=== PATIENT | male | born 1970 | race Caucasian/White ===

== ENCOUNTER 2024-06-09 16:53 | Observation (INO) | payer BC ==
[2024-06-09 17:29] LABS: Protime INR 1.14
[2024-06-09 17:36] LABS: Absolute Eosinophils 0.1 K/uL (0-0.5); Absolute Lymphocytes (CBC) 1.8 K/uL (0.7-4.9); Absolute Monocytes 0.5 K/uL (0.1-1.3); Absolute Neutrophil 8.2 K/uL (1.8-8.0); Basophils % 0.4 % (0-1.3); Eosinophils % 1.1 % (0-4.4); Hematocrit 46.2 % (39.6-49.0); MCH 32.4 pg (27.0-35.0); MCHC 34.8 g/dL (32.0-36.0); MCV 93.2 fL (80-100); MPV 12.5 fL (7.6-11.3); Neutrophils % 76.5 % (41.7-73.7); Nucleated Red Blood Cells % 0.1 % (0-0); Platelets 102 thou/uL (152-406); RBC Red Blood Cell Count 4.95 M/uL (4.33-5.43); Red Cell Distribution Width 12.9 % (12.1-15.2)
--- NOTE | 2024-06-09 17:42 | RAD REPORT ---
EXAMINATION: ONE VIEW CHEST XR CLINICAL INDICATION: CHEST PAIN TECHNIQUE: Frontal chest projection is submitted. Examination is limited by patient positioning and t echnique. COMPARISON: No prior exam. FINDINGS: The lungs are well inflated and clear. The heart is upper limit of normal in size. No displaced fract ures identified. IMPRESSION: No acute intrathoracic abnormalities.
[2024-06-09 17:43] LABS: ALT/SGPT 43 U/L (16-61); AST/SGOT 24 U/L (15-37); Albumin 3.6 g/dL (3.4-5.0); Albumin/Globulin Ratio 1.2 (1.1-1.8); Alkaline Phosphatase 79 U/L (45-117); Anion Gap 9.7 mEq/L (5.0-15.0); BUN Blood Urea Nitrogen 12 mg/dL (7-18); Bicarbonate 24 mEq/L (21-32); Bilirubin Total 0.4 mg/dL (0.2-1.0); Glomerular Filtration Rate 89 ml/min (=/>90); Glucose Level 110 mg/dL (74-106); NT PRO-BNP 79 pg/mL (<125); Potassium 3.7 mEq/L (3.5-5.1); Protein, Total 6.6 g/dL (6.4-8.2); Sodium Level 138 mEq/L (136-145); Troponin High Sensitivity 3.7 pg/mL (<58.9)
[2024-06-09 17:59] LABS: Bilirubin Direct < 0.2 mg/dL (0-0.2); Bilirubin Indirect, Calculated 0.2 mg/dL (0.2-0.8)
[2024-06-09] MEDS ORDERED: MORPHINE 4 MG/ML SYR ONE (18:16)
[2024-06-09] MEDS ORDERED: ONDANSETRON 4 MG/2 ML VIAL ONE (18:16)
--- NOTE | 2024-06-09 18:51 | EDPHYS ---
Physician Documentation [facility] Name: Steven Servin Age: 54 yrs Sex: Male : 1970 Arrival Date: 06/09/2024 Time: 16:53 Bed 19 Private MD: ED Physician David Mistry HPI: 06/09 18:49 This 54 yrs old Male presents to ER via EMS with complaints of Chest Pain. 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 States it feels similar to previous MA. Reports associated nausea, shortness of breath, and near syncope. . Historical: - Allergies: 17:06 PENICILLINS; kc6 - PMHx: 17:06 Hypertensive disorder; Myocardial infarction; Diabetes mellitus; kc6 - PSHx: 17:06 None; kc6 - Immunization history:: Adult Immunizations up to date. - Infectious Disease History:: Denies. - Social history:: Smoking status: Patient reports the use of cigarette tobacco products, denies chronic smoking, but will smoke occasionally, cigars. ROS: 18:49 Constitutional: As per HPI kb Exam: 17:33 Constitutional: This is a well developed, well nourished patient who is awake, alert, kb and in no acute distress. Head/Face: Normocephalic, atraumatic. ENT: Moist Mucous membranes Chest/axilla: Normal chest wall appearance and motion. Cardiovascular: Regular rate Respiratory: Respirations even and unlabored. No increased work of breathing. Talking in full sentences Abdomen/GI: Soft, non-tender. No distention Skin: Warm, dry with normal turgor. Normal color. MS/ Extremity: Pulses equal, no cyanosis. Neurovascular intact. Full, normal range of motion. Neuro: Awake and alert, GCS 15, oriented to person, place, time, and situation. 17:33 ECG was reviewed by the Attending Physician. Vital Signs: 17:04 BP 124 / 93; Pulse 78; Resp 18 S; Temp 98.7(TE); Pulse Ox 100% on R/A; Weight 116.57 kg kc6 (M); Height 6 ft. 0 in. (R); 19:00 BP 138 / 73; Pulse 78; Resp 18; Pulse Ox 95% ; cp4 20:30 BP 136 / 79; Pulse 81; Resp 18; Pulse Ox 98% ; cp4 17:04 Body Mass Index 34.86 (116.57 kg, 182.88 cm) kc6 MDM: 17:02 Medical Screening Exam initiated kb 18:47 Differential diagnosis: acute mi, arrhythmia. Data reviewed: vital signs, nurses notes. kb Consideration of Admission/Observation Patient was admitted/placed on observation. Escalation of care including admission/observation considered. Management of patient was discussed with the following: Hospitalist: Dr Mccray accepts pt for admission. Historians other than the Patient: EMS: [facility]. Care significantly affected by the following chronic conditions: Hypertension, high cholesterol, MA x2. Counseling: I had a detailed discussion with the patient and/or guardian regarding the historical points, exam findings, and any diagnostic results supporting the discharge/admit diagnosis, lab results, radiology results, the need for further work-up and treatment in the hospital. 18:50 ED course: HEART score 4. kb 06/09 17:02 Order name: Basic Metabolic Panel; Complete Time: 18:01 kb 06/09 17:02 Order name: CBC with Diff; Complete Time: 17:52 kb 06/09 17:02 Order name: LFT's; Complete Time: 18:01 kb 06/09 17:02 Order name: Magnesium; Complete Time: 18:01 kb 06/09 17:02 Order name: NT PRO-BNP; Complete Time: 18:01 kb 06/09 17:02 Order name: PT-INR; Complete Time: 17:32 kb 06/09 17:02 Order name: Troponin HS; Complete Time: 18:01 kb 06/09 19:04 Order name: Urinalysis w/ reflexes EDMS 06/09 19:04 Order name: CBC with Automated Diff EDMS 06/09 19:04 Order name: CBC with Automated Diff EDMS 06/09 19:04 Order name: Comprehensive Metabolic Panel EDMS 06/09 19:04 Order name: Comprehensive Metabolic Panel EDMS 06/09 19:04 Order name: Troponin High Sensitivity EDMS 06/09 19:04 Order name: Troponin High Sensitivity; Complete Time: 20:05 EDMS 06/09 19:05 Order name: Troponin High Sensitivity EDMS 06/09 19:05 Order name: Troponin High Sensitivity EDMS 06/09 17:02 Order name: XRAY Chest (1 view); Complete Time: 17:52 kb 06/09 17:02 Order name: EKG; Complete Time: 17:03 kb 06/09 17:02 Order name: Cardiac monitoring; Complete Time: 17:10 kb 06/09 17:02 Order name: EKG - Nurse/Tech; Complete Time: 17:10 kb 06/09 17:02 Order name: IV Saline Lock; Complete Time: 17:10 kb 06/09 17:02 Order name: Labs collected and sent; Complete Time: 17:11 kb 06/09 17:02 Order name: O2 Per Protocol; Complete Time: 17:11 kb 06/09 17:02 Order name: O2 Sat Monitoring; Complete Time: 17:11 kb EC:33 Rate is 72 beats/min. Rhythm is regular. QRS Otto is Normal. FL interval is normal at kb 182 msec. QRS interval is normal at 96 msec. QT interval is normal at 435 msec. Administered Medications: 18:27 Drug: morphine IVP or IV 4 mg IVP once over 4 mins Route: IVP; Infused Over: 4 mins; kc6 Site: right antecubital; 19:02 Follow up: Response: No adverse reaction; Pain is decreased; RASS: Alert and Calm (0) [facility] 18:27 Drug: Ondansetron IVP 4 mg IVP once; over 2 minutes Route: IVP; Site: right antecubital;kc6 19:02 Follow up: Response: No adverse reaction [facility] Disposition Summary: 06/09/24 18:50 Hospitalization Ordered Notes: Hospitalization Status: Observation kb Provider: Martir Mccray Location: Telemetry/MedSurg (observation) kb Condition: Stable kb Problem: new kb Symptoms: are unchanged kb Bed/Room Type: Standard Room Assignment: 205(06/09/24 19:25) kmf Diagnosis - Chest pain, unspecified kb Forms: - Medication Reconciliation Form kb - SBAR form kb - Leadership Thank You Letter kb Signatures: Dispatcher [employer] Eloina West FNP-C FNP-Shantel Teran RN RN kc6 Sandra Hunter km Corrections: (The following items were deleted from the chart) 19:25 18:50 kb kmf
--- NOTE | 2024-06-09 18:51 | ER ---
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 Coronavirus screen: At this time, the client does not indicate any symptoms associated with coronavirus-19. Ebola Screen: No symptoms or risks identified at this time. Initial Sepsis Screen: Does the patient meet any 2 criteria? No. Patient's initial sepsis screen is negative. Does the patient have a suspected source of infection? No. Patient's initial sepsis screen is negative. Risk Assessment: Do you want to hurt yourself or someone else? Patient reports no desire to harm self or others. Onset of symptoms was June 09, 2024. Care prior to arrival: Medication(s) given: ASA, 81 mg, x 4, IV initiated. 18 GA, in the right antecubital area, Glucose check: 99. 17:04 Method Of Arrival: EMS: [facility] kc6 17:04 Acuity: BRYANT 2 kc6 Historical: - Allergies: 17:06 PENICILLINS; kc6 - PMHx: 17:06 Hypertensive disorder; Myocardial infarction; Diabetes mellitus; kc6 - PSHx: 17:06 None; kc6 - Immunization history:: Adult Immunizations up to date. - Infectious Disease History:: Denies. - Social history:: Smoking status: Patient reports the use of cigarette tobacco products, denies chronic smoking, but will smoke occasionally, cigars. Screenin:07 [facility] ED Fall Risk Assessment (Adult) History of falling in the last 3 months, kc6 including since admission No falls in past 3 months (0 pts) Confusion or Disorientation No (0 pts) Intoxicated or Sedated No (0 pts) Impaired Gait No (0 pts) Mobility Assist Device Used No (0 pt) Altered Elimination No (0 pt) Score/Fall Risk Level 0 - 2 = Low Risk Oriented to surroundings, Maintained a safe environment, Educated pt \T\ family on fall prevention, incl call for assistance when getting out of bed. Abuse screen: Denies threats or abuse. Denies injuries from another. Nutritional screening: No deficits noted. Tuberculosis screening: No symptoms or risk factors identified. Assessment: 16:55 General: Appears in no apparent distress. uncomfortable, well groomed, well developed, kc6 Behavior is cooperative, appropriate for age, anxious. Pain: Complains of pain in chest Pain radiates to left arm Pain currently is 9 out of 10 on a pain scale. at worst was 10 out of 10 on a pain scale. Quality of pain is described as radiating, sharp, Pain began suddenly, 1 hour ago. Is continuous, Noted to be grimacing, resistant to movement. Neuro: Level of Consciousness is awake, alert, obeys commands, Oriented to person, place, time, situation, Appropriate for age Reports dizziness. Cardiovascular: Reports chest pain, Heart tones S1 S2 present Capillary refill < 3 seconds Rhythm is sinus rhythm. Respiratory: Airway is patent Trachea midline Respiratory effort is even, unlabored, Respiratory pattern is regular, symmetrical. GI: Reports nausea. : No signs and/or symptoms were reported regarding the genitourinary system. Urine is clear. EENT: No signs and/or symptoms were reported regarding the EENT system. Derm: No signs and/or symptoms reported regarding the dermatologic system. Skin is intact, is healthy with good turgor, Skin is pink, warm \T\ dry. Musculoskeletal: No signs and/or symptoms reported regarding the musculoskeletal system. Circulation, motion, and sensation intact. Range of motion: intact in all extremities. 17:55 Reassessment: Patient appears in no apparent distress at this time. No changes from kc6 previously documented assessment. Patient and/or family updated on plan of care and expected duration. Pain level reassessed. Patient is alert, oriented x 3, equal unlabored respirations, skin warm/dry/pink. Vital Signs: 17:04 BP 124 / 93; Pulse 78; Resp 18 S; Temp 98.7(TE); Pulse Ox 100% on R/A; Weight 116.57 kg kc6 (M); Height 6 ft. 0 in. (R); 19:00 BP 138 / 73; Pulse 78; Resp 18; Pulse Ox 95% ; cp4 20:30 BP 136 / 79; Pulse 81; Resp 18; Pulse Ox 98% ; cp4 17:04 Body Mass Index 34.86 (116.57 kg, 182.88 cm) [facility] ED Course: 17:02 Patient arrived in ED. kb 17:02 Eloina Sevilla FNP-C is [facility]. kb 17:02 David Mistry MD is Attending Physician. kb 17:04 Shantel Acuña RN is Primary Nurse. kc6 17:06 Triage completed. kc6 17:06 Arm band placed on. EKG completed in triage. Results shown to MD. kc6 17:07 Patient has correct armband on for positive identification. Bed in low position. Call kc6 light in reach. Side rails up X2. playground monitor on. Pulse ox on. NIBP on. Door closed. Noise minimized. Lights dimmed. Warm blanket given. Pillow given. 17:07 EKG done, by ED staff, reviewed by Eloina CROWLEY. Maintain EMS IV. Dressing kc6 intact. Good blood return noted. Site clean \T\ dry. Gauge \T\ site: 18GRAC. Flushed with 10 mL NS. Patient maintains SpO2 saturation greater than 95% on room air. 17:31 XRAY Chest (1 view) In Process Unspecified. EDMS 18:50 Martir Mccray MD is Hospitalizing Provider. kb 19:02 Report given to Katherine Osborne RN. [facility] 20:30 Provided Education on: admission. cp4 20:30 No provider procedures requiring assistance completed. Patient admitted, IV remains in cp4 place. Administered Medications: 18:27 Drug: morphine IVP or IV 4 mg IVP once over 4 mins Route: IVP; Infused Over: 4 mins; [facility] Site: right antecubital; 19:02 Follow up: Response: No adverse reaction; Pain is decreased; RASS: Alert and Calm (0) [facility] 18:27 Drug: Ondansetron IVP 4 mg IVP once; over 2 minutes Route: IVP; Site: right antecubital;[facility] 19:02 Follow up: Response: No adverse reaction [facility] Medication: 20:30 VIS not applicable for this client. cp4 Outcome: 18:50 Decision to Hospitalize by Provider. kb 20:37 Patient left the ED. vc1 Signatures: Dispatcher [employer] EDCA Eloina Sevilla FNP-C FNP-Ckb Calcote, Vanessa, RN RN vc1 Shantel Acuña, RN RN kc6 Brittany Osborne cp4
[2024-06-09] MEDS ORDERED: ONDANSETRON 4 MG/2 ML VIAL IV PRN (18:59)
[2024-06-09] MEDS ORDERED: ACETAMINOPHEN 325 MG TABLET PO PRN (18:59)
--- NOTE | 2024-06-09 18:59 | P.HP ---
Certification for Inpatient Patient admitted to: Observation With expected LOS: <2 Midnights Practitioner: I am a practitioner with admitting privileges, knowledge of patient current condition, hospital course, and medical plan of care. Services: Services provided to patient in accordance with Admission requirements found in Title 42 Section 412.3 of the Code of Federal Regulations Patient History Date of Service: 06/09/24 Reason for admission: Chest Pain History of Present Illness: 54 yrs old Male with past medical history of diabetes, hypertension, hyperlipidemia, CAD status post myocardial infarction, history of smoking brought to ER with chest pain. Patient has been having flulike symptoms 2 weeks ago and has been progressively getting worse now associated with chest pain. Chest pain is retrosternal in location radiating to the left arm and also to the back. Denies any diaphoresis. No nausea vomiting diarrhea. Complains of cough. Associated with nasal congestion. Cough is productive with mucoid expectoration. Denies any hemoptysis. Denies any shortness of breath. Chest pain feels the same as when he had myocardial infarction Patient was assessed in the ER and is admitted for further management of chest pain rule out ACS Allergies Penicillins Allergy (Severe, Verified 06/09/24 21:05) Shortness of breath Home medications list reviewed: Yes Home Medications: Buspirone HCl [Buspar] 10 mg PO DAILY 06/09/24 Gabapentin 600 mg PO BEDTIME 06/09/24 Isosorbide Dinitrate 30 mg PO DAILYPRN PRN 06/09/24 Lisinopril [Zestril] 10 mg PO DAILY 06/09/24 Magnesium Oxide [Magnesium] 250 mg PO DAILY 06/09/24 Omeprazole [Prilosec] 40 mg PO DAILY 06/09/24 Rosuvastatin Calcium [Crestor] 20 mg PO BEDTIME 06/09/24 - Past Medical/Surgical History Past Medical History: Reviewed- Non-Contributory -: Hypertension, hyperlipidemia, diabetes, Past Surgical History: Reviewed- Non-Contributory - Family History Father -: Diabetes Mother -: Heart disease, Cancer Sister -: Heart disease - Social History Smoking Status: Current some day smoker Review of Systems 10-point ROS is otherwise unremarkable Physical Examination - Physical Exam General: Alert, In no apparent distress, Oriented x3 HEENT: Atraumatic, Normocephalic Neck: Supple, 2+ carotid pulse no bruit Respiratory: Clear to auscultation bilaterally, Normal air movement, Crackles/rales Cardiovascular: No edema, Normal pulses, Regular rate/rhythm Capillary refill: <2 Seconds Gastrointestinal: Soft and benign, W/out hepatosplenomegaly Musculoskeletal: No clubbing, No swelling Integumentary: No rashes, No breakdown Neurological: Normal speech, Cranial nerves 3-12 intact Lymphatics: No axilla or inguinal lymphadenopathy - Studies Laboratory Data (last 24 hrs) 06/09/24 06/09/24 06/09/24 17:10 17:10 17:10 WBC 10.70 Hgb 16.0 Hct 46.2 Plt Count 102 L PT 12.0 INR 1.14 Sodium 138 Potassium 3.7 BUN 12 Creatinine 1.01 Glucose 110 H Magnesium 2.0 Total Bilirubin 0.4 AST 24 ALT 43 Alkaline Phosphatase 79 Assessment and Plan - Plan Unstable angina Will trend cardiac enzymes Will monitor telemetry Started on aspirin and statin EKG did not show any acute changes suggestive of ischemia Will get an echocardiogram Cardiology consult Hypertension Antihypertensives titrated Continue home medications and titrate as needed Hyperlipidemia Continue statin Upper respiratory tract infection Antitussives Pain control Smoking Advised cessation Offered measures GI/DVT prophylaxis Advanced directive full code Discharge Plan: Home Plan to discharge in: 48 Hours - Advance Directives Does patient have a Living Will: No Does patient have a Durable POA for Healthcare: No - Code Status/Comfort Care Code Status: Full Code Time Spent Managing Pts Care (In Minutes): 48
[2024-06-09 20:26] VITALS: BMI 34.2
[2024-06-09] MEDS ORDERED: ISOSORBIDE DINITRATE 30 MG PO PRN (21:43)
[2024-06-09] MEDS ORDERED: PROMETH/COD 6.25/10MG SYRUP 5ML PO PRN (21:43)
[2024-06-09] MEDS: MUCINEX DM 12HR.SR TAB PO SCH (23:22)
[2024-06-09] MEDS: POTASSIUM 25 MEQ EFFERV TAB PO ONE (23:23)
[2024-06-09] MEDS: ZOLPIDEM TARTRATE 10 MG TABLET PO PRN (23:57)
[2024-06-10 00:48] LABS: Urine Bilirubin NEGATIVE (Negative); Urine Blood Negative (Negative); Urine Clarity Clear (Clear); Urine Color Light-Yellow (Yellow); Urine Glucose NEGATIVE (Negative); Urine Ketones NEGATIVE (Negative); Urine Microscopic Reflex YN NO UMIC; Urine Nitrite NEGATIVE (Negative); Urine Protein NEGATIVE (Negative); Urine Urobilinogen Normal (Normal)
[2024-06-10 00:50] LABS: Specific Gravity > 1.030 (1.005-1.030)
[2024-06-10 04:09] LABS: Absolute Eosinophils 0.1 K/uL (0-0.5); Absolute Lymphocytes (CBC) 2.9 K/uL (0.7-4.9); Absolute Monocytes 0.9 K/uL (0.1-1.3); Absolute Neutrophil 7.6 K/uL (1.8-8.0); Basophils % 0.2 % (0-1.3); Eosinophils % 0.6 % (0-4.4); Hematocrit 43.6 % (39.6-49.0); Lymphocytes % 25.1 % (15.3-44.8); MCH 32.1 pg (27.0-35.0); MCHC 34.5 g/dL (32.0-36.0); MPV 11.7 fL (7.6-11.3); Monocytes % 7.9 % (3.3-12.3); Neutrophils % 66.2 % (41.7-73.7); Nucleated Red Blood Cells % 0.1 % (0-0); Platelets 92 thou/uL (152-406); RBC Red Blood Cell Count 4.69 M/uL (4.33-5.43); Red Cell Distribution Width 12.7 % (12.1-15.2)
[2024-06-10 04:24] LABS: Albumin 3.3 g/dL (3.4-5.0); Albumin/Globulin Ratio 1.1 (1.1-1.8); Anion Gap 9.8 mEq/L (5.0-15.0); Bilirubin Total 0.5 mg/dL (0.2-1.0); Potassium 3.8 mEq/L (3.5-5.1); Protein, Total 6.3 g/dL (6.4-8.2)
[2024-06-10 05:08] VITALS: O2SAT 95
--- NOTE | 2024-06-10 07:06 | RAD REPORT ---
EXAMINATION: CTA CHEST PE CLINICAL INDICATION: Chest pain TECHNIQUE: 100 cc 370 Isovue administered intravenously. This examination was performed according to an angiographic protocol with 3D post-processing. This involves 3D reconstructions, MIPs, volume rendered images and/or shaded surface rendering. One or more of the following dose reduction techniqu es were used: Automated exposure control, adjustment of the mA and/or kV according to patient size, and/or iterative reconstruction. Unless otherwise specified, incidental findings do not require dedic ated imaging follow-up. [id number]. COMPARISON: No prior exam. FINDINGS: Suboptimal opacification of the pulmonary arteries. No gross central pulmonary embolus seen in A pulmonary embolus is not seen. Aortic root 4 cm. No pleural effusion. No pericardial effusion. Lungs are clear. IMPRESSION: No gross central pulmonary embolus seen
[2024-06-10] MEDS: PNEUMOCOCCAL VACCINE 0.5 ML IMVAC ONE (08:00)
[2024-06-10] MEDS: MAGNESIUM OXIDE 400 MG TAB PO SCH (09:00)
[2024-06-10] MEDS: ENOXAPARIN 40 MG/0.4 ML SQ SCH (09:00)
[2024-06-10] MEDS ORDERED: HOME MED 1 EA UNK (Buspirone Hcl [Buspar] 10 MG Tablet) PO SCH (09:00)
[2024-06-10] MEDS: POTASSIUM CL SA 10 MEQ TAB PO ONE (09:15)
[2024-06-10] MEDS: lisinopriL 10 MG TAB PO SCH (09:16)
[2024-06-10] MEDS: ASPIRIN EC 81 MG TAB PO SCH (09:16)
[2024-06-10] MEDS: ISOSORBIDE DINIT 20 MG TAB PO SCH (09:16)
[2024-06-10] MEDS: PANTOPRAZOLE 40MG TABLET PO SCH (09:16)
[2024-06-10] MEDS: BUSPIRONE HCL 5 MG TABLET PO SCH (09:16)
--- NOTE | 2024-06-10 11:53 | P.CNS ---
Date of Consult: 06/10/24 Chief Complaint: Chest Pain History of Present Illness: Patient with PMH of coronary spasm, aneurysm per patient, also HTN, HLD presented one episode chest pain, left sided, radiated to his shoulder, patient report having repeated coronary angiograms and was told he has prinzmetal a ngina, no other cardiac symptoms, no palpitations, no syncope. Allergies Penicillins Allergy (Severe, Verified 06/09/24 21:05) Shortness of breath Home medications list reviewed: Yes Home Medications: Buspirone HCl [Buspar] 10 mg PO BID 06/09/24 Gabapentin 600 mg PO BEDTIME 06/09/24 Isosorbide Dinitrate 30 mg PO TID 06/09/24 Lisinopril [Zestril] 10 mg PO DAILY 06/09/24 Magnesium Oxide [Magnesium] 250 mg PO DAILY 06/09/24 Omeprazole [Prilosec] 40 mg PO DAILY 06/09/24 Rosuvastatin Calcium [Crestor] 20 mg PO BEDTIME 06/09/24 Venlafaxine HCl [Venlafaxine HCl ER] 75 mg PO DAILY 06/09/24 - Past Medical/Surgical History Diabetic: Yes -: Hypertension, hyperlipidemia, diabetes, -: neuropathy -: HTN -: MIx2 -: PE -: depression -: angiogram -: r hand sx - Family History Father Medical History: Diabetes Mother Medical History: Heart disease, Cancer Sister Medical History: Heart disease - Social History Smoking Status: Current some day smoker Alcohol use: Yes CD- Drugs: No Caffeine use: Yes Place of Residence: Home Review of Systems 10-point ROS is otherwise unremarkable Physical Examination Temp Pulse Resp BP Pulse Ox 97.8 F 71 16 124/87 96 06/10/24 08:00 06/10/24 08:00 06/10/24 08:00 06/10/24 08:00 06/10/24 08:00 General: Alert, In no apparent distress HEENT: Atraumatic, PERRLA, Mucous membr. moist/pink, EOMI, Sclerae nonicteric Neck: Supple, 2+ carotid pulse no bruit, No LAD, Without JVD or thyroid abnormality Respiratory: Clear to auscultation bilaterally, Normal air movement Cardiovascular: Regular rate/rhythm, Normal S1 S2 Gastrointestinal: Normal bowel sounds, No tenderness Musculoskeletal: No tenderness Integumentary: No rashes Neurological: Normal gait, Normal speech, Normal tone, Normal affect Lymphatics: No axilla or inguinal lymphadenopathy Laboratory Data (last 24 hrs) 06/09/24 06/09/24 06/09/24 17:10 17:10 17:10 WBC 10.70 Hgb 16.0 Hct 46.2 Plt Count 102 L PT 12.0 INR 1.14 Sodium 138 Potassium 3.7 BUN 12 Creatinine 1.01 Glucose 110 H Magnesium 2.0 Total Bilirubin 0.4 AST 24 ALT 43 Alkaline Phosphatase 79 - Problems (1) Chest pain Current Visit: Yes Status: Acute Plan: Patient cardiac enzymes are negative x3, 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 continue Isosorbide 30 mg TID continue lisinopril 10 mg daily, can cut back if BP is low. No further cardiac work up needed follow up as outpatient with cardiology for stress test and echo (2) HTN (hypertension) Current Visit: Yes Status: Acute Plan: adjust medications as above. (3) HLD (hyperlipidemia) Current Visit: Yes Status: Acute Plan: continue statins and Vascepa. lipid panel in 3 months
[2024-06-10 12:34] VITALS: BP 106/63; TEMP 97.9
--- NOTE | 2024-06-10 13:41 | P.DS ---
Admission Date: 06/09/24 Discharge Date: 06/10/24 Disposition: ROUTINE DISCHARGE Discharge Condition: FAIR Reason for Admission: Chest Pain Brief History of Present Illness: 54 yrs old Male with past medical history of diabetes, hypertension, hyperlipidemia, CAD status post myocardial infarction, history of smoking brought to ER with chest pain. Patient has been having flulike symptoms 2 weeks prior and has been progressively getting worse now associated with chest pain. Patient also reported nasal congestion. Cough is productive with mucoid expectoration. Chest pain feels the same as when he had myocardial infarction. Initial troponin negative. Patient was hospitalized for ACS rule out. Hospital Course: Diagnosis Chest pain, ACS ruled out CAD Hypertension Hyperlipidemia Upper respiratory infection Patient placed on observation on the medical floor, troponin trended negative. Patient was chest pain-free during the hospital stay. He was evaluated by cardiology, ACS ruled out. Cardiology recommended follow-up as outpatient for stress test. Patient is on aspirin and Crestor which are resumed on discharge. Patient requested refill of BuSpar which is prescribed. Vital Signs/Physical Exam: Temp Pulse Resp BP Pulse Ox 97.9 F 89 16 106/63 97 06/10/24 12:00 06/10/24 12:00 06/10/24 12:00 06/10/24 12:00 06/10/24 12:00 General: Alert, In no apparent distress, Oriented x3 HEENT: Mucous membr. moist/pink, Sclerae nonicteric Neck: Supple, JVD not distended Respiratory: Clear to auscultation bilaterally, Normal air movement Cardiovascular: No edema, Regular rate/rhythm, Normal S1 S2 Gastrointestinal: Soft and benign, Non-distended Musculoskeletal: No swelling Integumentary: No rashes, No cyanosis Neurological: Normal strength at 5/5 x4 extr Laboratory Data at Discharge: WBC 11.50 thou/uL (4.3-10.9) H 06/10/24 03:47 Hgb 15.0 g/dL (13.6-17.9) 06/10/24 03:47 Hct 43.6 % (39.6-49.0) 06/10/24 03:47 Plt Count 92 thou/uL (152-406) L 06/10/24 03:47 PT 12.0 SECONDS (9.4-12.5) 06/09/24 17:10 INR 1.14 06/09/24 17:10 Sodium 140 mEq/L (136-145) 06/10/24 03:47 Potassium 3.8 mEq/L (3.5-5.1) 06/10/24 03:47 BUN 14 mg/dL (7-18) 06/10/24 03:47 Creatinine 0.89 mg/dL (0.70-1.30) 06/10/24 03:47 Glucose 102 mg/dL (74-106) 06/10/24 03:47 Magnesium 2.0 mg/dL (1.6-2.4) 06/09/24 17:10 Total Bilirubin 0.5 mg/dL (0.2-1.0) 06/10/24 03:47 AST 17 U/L (15-37) 06/10/24 03:47 ALT 35 U/L (16-61) 06/10/24 03:47 Alkaline Phosphatase 76 U/L (45-117) 06/10/24 03:47 Home Medications: Gabapentin 600 mg PO BEDTIME 06/09/24 Isosorbide Dinitrate 30 mg PO TID 06/09/24 Lisinopril [Zestril] 10 mg PO DAILY 06/09/24 Magnesium Oxide [Magnesium] 250 mg PO DAILY 06/09/24 Omeprazole [Prilosec] 40 mg PO DAILY 06/09/24 Rosuvastatin Calcium [Crestor] 20 mg PO BEDTIME 06/09/24 Venlafaxine HCl [Venlafaxine HCl ER] 75 mg PO DAILY 06/09/24 Aspirin [Aspirin EC 81 MG] 81 mg PO DAILY #30 tab 06/10/24 Buspirone HCl [Buspar] 10 mg PO BID #60 tab 06/10/24 New Medications: Aspirin [Aspirin EC 81 MG] 81 mg PO DAILY #30 tab Buspirone HCl [Buspar] 10 mg PO BID #60 tab Diet: AHA Activity: Ad holland Followup: Tutu Vasques MD [Primary Care Provider] - 1-2 Weeks True Jesus MD [ACTIVE - CAN ADMIT] - 1 Week (For outpatient stress test) Time spent managing pt's care (in minutes): 28
--- NOTE | 2024-06-10 14:15 | ECHO ---
HEIGHT: 6 ft 0 in WEIGHT: 252 lb 3.2 oz DATE OF STUDY: 06/10/[address]: Frantz Mccray 2-DIMENSIONAL: YES M.MODE: YES DOPPLER: YES COLOR FLOW: YES TDS: YES PORTABLE: YES DEFINITY: NO BUBBLE STUDY: NO DIAGNOSIS: CHEST PAIN CARDIAC HISTORY: CATHERIZATION:YES SURGERY: NO PROSTHETIC VALVE: NO PACEMAKER: NO MEASUREMENTS (cm) DIASTOLIC (NORMALS) SYSTOLIC (NORMALS) IVSd 1.2 (0.6-1.2) LA Diam (1.9-4.0) LVEF 60-65% LVIDd 3.3 (3.5-5.7) LVIDs 2.5 (2.0-3.5) %FS 26% LVPWd 1.2 (0.6-1.2) Ao Diam 3.3 (2.0-3.7) 2 DIMENSIONAL ASSESSMENT: RIGHT ATRIUM: NORMAL LEFT ATRIUM: NORMAL RIGHT VENTRICLE: NORMAL LEFT VENTRICLE: NORMAL TRICUSPID VALVE: NORMAL MITRAL VALVE: NORMAL PULMONIC VALVE: NORMAL AORTIC VALVE: NORMAL PERICARDIAL EFFUSION: NONE AORTIC ROOT: NORMAL LEFT VENTRICULAR WALL MOTION: NORMAL. DOPPLER/COLOR FLOW: NORMAL. COMMENTS: 1. NORMAL LEFT VENTRICULAR SYSTOLIC FUNCTION. LEFT VENTRICULAR EJECTION FRACTION 60-65%. NORMAL WALL MOTION. 2. NORMAL DIASTOLIC FUNCTION. TECHNOLOGIST: MARIAN JOHNSON
[2024-06-10] MEDS ORDERED: ATORVASTATIN 40 MG TAB PO SCH (21:00)
[2024-06-10] MEDS ORDERED: GABAPENTIN 300 MG CAP PO SCH (21:00)
--- NOTE | 2024-06-11 15:11 | EKG ---
Test Date: 2024-06-09 Test Time: 17:02:14 Writing Tutor: SHERYL MEASUREMENT RESULTS: Intervals: Rate: 72 SC: 182 QRSD: 96 QT: 398 QTc: 435 [place]: P: 37 SC: 182 QRS: 19 T: 56 INTERPRETIVE STATEMENTS: Normal sinus rhythm Normal ECG No previous ECG available for comparison Electronically Signed On 06-11-24 15:07:09 [employer]ITION TE[employer] by Jose F Flores
== END 2024-06-10 15:04 | disposition home or self-care (01) ==
LOC: ER 16:53 → ERHOLD 18:59 → 2ND 19:38
PROVIDERS: ADMIT Family Medicine; ATTEND Internal Medicine
DX: R07.9 Chest pain, unspecified (principal); J06.9 Acute upper respiratory infection, unspecified; E11.9 Type 2 diabetes mellitus without complications; I10 Essential (primary) hypertension; E78.5 Hyperlipidemia, unspecified; I25.10 Atherosclerotic heart disease of native coronary artery without angina pectoris; I25.2 Old myocardial infarction; F17.210 Nicotine dependence, cigarettes, uncomplicated; Z88.0 Allergy status to penicillin; Z71.6 Tobacco abuse counseling; Z79.82 Long term (current) use of aspirin
CPT/HCPCS: 93306; 85025 ×2; 80048; 36415; 83735; 85610; 82947 ×2; 80076; 81003; 84484 ×4; 80053; 83880; 71275; 71045; 96375; 96374; 99285; Q9967; J2405; 93005; G0378